=== PATIENT | female | born 1945 | race Caucasian/White ===

== ENCOUNTER 2020-05-16 16:02 | Emergency (ER) | payer MEDICARE, OTHER ==
[~2020-05-16 16:02] MED LIST: CITRATE OF MAG296 ML PO; DULCOLAX10 MG PR; OMNICEF 300 MG300 MG PO; STOOL CULTURE; VENTOLIN HFA 66.7 GM INH
[2020-05-16 17:53] LABS: HEMOGLOBIN 11.7 gm/dl (12.3-15.3); RED BLOOD COUNT 3.94 M/UL (4.00-5.10); WHITE BLOOD COUNT 5.2 K/UL (4.5-11.0)
[2020-05-16 18:38] LABS: BUN/CREATININE RATIO 27 (0-10)
[2020-05-16] MEDS ORDERED: ZITHROMAX250 MG PO (19:58)
[2020-05-16] MEDS ORDERED: OMNICEF 300 MG300 MG PO (19:58)
[2020-05-17 13:28] LABS: ACINETOBACTER BAUMANNII Not Detected (Negative); CANDIDA ALBICANS Not Detected (Negative); CANDIDA KRUSEI Not Detected (Negative); CANDIDA TROPICALIS Not Detected (Negative); ENTEROCOCCUS Not Detected (Negative); ESCHERICHIA COLI Not Detected (Negative); HAEMOPHILUS INFLUENZAE Not Detected (Negative); KLEBSIELLA OXYTOCA Not Detected (Negative); KLEBSIELLA PNEUMONIAE Not Detected (Negative); KPC-CARBAPENEM-RESISTANCE GENE Not Detected (Negative); PROTEUS Not Detected (Negative); PSEUDOMONAS AERUGINOSA Not Detected (Negative); SERRATIA MARCESANS Not Detected (Negative); STAPHYLOCOCCUS AUREUS Not Detected (Negative); STREP AGALACTIAE (GROUP B) Not Detected (Negative); STREP PYOGENES (GROUP A) Not Detected (Negative); STREPTOCOCCUS Not Detected (Negative); mecA (METHICILLIN RESIST GENE Not Detected (Negative); vanA/B (VANCOMYCIN RESIST GENE Not Detected (Negative)
[2020-05-17 15:02] LABS: STAPHYLOCOCCUS DETECTED (Negative)
== END 2020-05-16 20:51 | disposition home or self-care (01) ==
LOC: ER1 16:02
PROVIDERS: Emergency Medicine
DX: J18.9 Pneumonia, unspecified organism (principal); I12.9 Hypertensive chronic kidney disease with stage 1 through stage 4 chronic kidney disease, or unspecified chronic kidney disease; N18.9 Chronic kidney disease, unspecified; Z86.73 Personal history of transient ischemic attack (TIA), and cerebral infarction without residual deficits; Z20.822 Contact with and (suspected) exposure to COVID-19
CPT/HCPCS: 51701; 71045; 80053; 81001; 82550; 82553; 83605; 83690; 83735; 83874; 83880; 84484; 85025; 87040; 87077; 87086; 87150; 87186; 96365; 99284; J0696; U0002

== ENCOUNTER 2020-05-17 18:17 | Emergency (ER) | payer MEDICARE, OTHER ==
[~2020-05-17 18:17] MED LIST changes: +ZITHROMAX250 MG PO
[2020-05-17 19:35] LABS: HEMOGLOBIN 11.6 gm/dl (12.3-15.3); RED BLOOD COUNT 3.94 M/UL (4.00-5.10); WHITE BLOOD COUNT 4.8 K/UL (4.5-11.0)
== END 2020-05-18 00:40 | disposition home or self-care (01) ==
LOC: ER1 18:17
PROVIDERS: Emergency Medicine
DX: R78.81 Bacteremia (principal); R05 Cough; R91.8 Other nonspecific abnormal finding of lung field; I10 Essential (primary) hypertension; J44.9 Chronic obstructive pulmonary disease, unspecified; Z86.73 Personal history of transient ischemic attack (TIA), and cerebral infarction without residual deficits
CPT/HCPCS: 71250; 80053; 83605; 85025; 85652; 86140; 87040; 96365; 96366; 96368; 99284; J0696; J3370; J7030